=== PATIENT | female | born 1950 | race Caucasian/White ===

== ENCOUNTER 2024-03-27 09:30 | Outpatient (RCR) | payer MEDICARE, BC, SELFPAY | END 2024-03-30 10:46 | disposition home or self-care (01) | PROVIDERS: PCP Family Medicine; Visit Provider Family Medicine | DX: M54.2 Cervicalgia (principal); G44.86 Cervicogenic headache; Z51.89 Encounter for other specified aftercare | CPT/HCPCS: 97110; 97140; 97161; 97530 ==

== ENCOUNTER 2024-10-08 13:06 | Emergency (ER) | payer MEDICARE, BC, SELFPAY ==
[2024-10-08] VITALS (9 sets, daily range): BP systolic 136–168; BP diastolic 66–73; PULSE 71–80; RESP 20; TEMP 36.6; O2SAT 94–98; BMI 29.2
--- OUTSIDE RECORDS SUMMARY | 2024-10-08 13:19 | XMS_ITS | Clinical Summary ---
Author Organization [facility] Address [address] [place] [id number] Care Team Providers Care Proposal Analyst Name Role Phone Hanny Verma MD Primary Care Provider Allergies Active Allergy Reactions Criticality Noted Date Comments Penicillins Rash 02/06/2011 Medications vitamin a-vitamin c-vitamin e-minerals (OCUVITE) 1,000-60-2 wwya-tuxh-di tablet Take 1 tablet by mouth once daily. 0 02/06/2011 Active cholecalciferol (VITAMIN D) 1,000 unit capsule Take 1 capsule by mouth once daily. 0 02/06/2011 Active fish oil-fat acid comb.8-Hb137 (OMEGA 3-6-9) 1,200 mg Cap capsule Take 1 capsule by mouth once daily. 0 02/06/2011 Active aspirin (ECOTRIN) 81 mg enteric coated tabletIndication s:HTN (hypertension) Take 1 tablet by mouth once daily with a meal. 90 tablet 3 08/17/2015 Active Lactobacillus acidophilus (PROBIOTIC) 10 billion cell cap Take by mouth. 0 10/16/2017 Active losartan-hydroch lorothiazide (HYZAAR) 100-12.5 mg tabletIndication s:Hypertension, unspecified type Take 1 Tablet by mouth once daily. 90 Tablet 3 12/31/2023 Active Active Problems Problem Noted Date Diagnosed Date [place] or callus 12/31/2023 Bilateral leg edema 12/31/2023 Hemorrhoids, internal 12/26/2022 Hypertensive disease 12/26/2022 Depression, recurrent 12/26/2022 ACP (advance care planning) 11/27/2017 Overview (11/27/2017): HCD received, see HCD 11/25/17 TERRENCE MahoneyW Advance Care Planning Educator [phone] Osteopenia 08/14/2013 Overview (08/14/2013): -1.6. Repeat 3-5 years. Monet Malagon M.D. 08/14/2013 4:17 PM Mixed hyperlipidemia 02/13/2012 Assessment & Plan (12/06/2016 9:25 AM CDT): ASCVD risk calculator 11.5% Has elected to not take statin after risk/benefit discussion Hyperplastic colon polyp 03/28/2011 Overview (03/28/2011): Colonoscopy 03/2011 polyps repeat in 10 years HTN (hypertension) 02/06/2011 Immunizations Immunization Administration Dates Next Due COVID-19 VACCINE SPIKEVAX (M ODERNA 50MCG/0.5ML) 12YO+ PFS 12/31/2023,12/26/2022 COVID-19 vaccine (Pfizer-Bio NTech 30mcg/0.3mL) PF, MDV 01/23/2021 Influenza RIV4 (Age 18+ Years) PRESERV FREE 07/2019,12/23/2018 Influenza, High-dose Inactivated 01/08/2018,11/16,11/29/2014 Influenza, IIV3 (Age >=3 years) 12/18/2013,02/12,02/06/2011 Influenza, Inactivated AIIV4 (Age 65+ Years) Preserv Free 12/26/2022,12/14/2021,12/06/2020 Influenza, Inactivated IIV3 (Age 65+ Years) Preserv Free 12/31/2023,01/14/2017 Pneumococcal Poly,23-Valent (Pneumovax) 11/30/19 15 Pneumococcal conj 13-Valent (Prevnar 13) 014 Td (Age >=7 Years) 10/13/1996 Tdap 06/07/2023,02/06/2011 Zoster (Shingrix-RZV, recombinant) 07/08/2018, Zoster (Zostavax-ZVL, live) 02/06/2011 Family History Medical History Relation Name Comments Heart Disease Father Hypertension Mother Cancer-breast No Family History Cancer-colon No Family History Relation Name Status Comments Father (Age 56) first mi a ge 30 Mother Social History Tobacco Use Types Packs/Day Years Used Date Smoking Tobacco: Never Smokeless Tobacco: Never Tobacco Cessation:Counseling Given: Yes Alcohol Use Standard Drinks/Week Comments No 0 (1 standard drink = 0.6 oz pur e alcohol) PHQ-2 Answer Date Recorded PHQ-2 TOTAL SCORE 5 12/31/2023 Social Connections Answer Date Recorded Do you often feel lonely or isolated from those around you? 0 12/30/2023 Financial Resource Strain Answer Date R ecorded Difficulty of Paying Living Expenses 3 12/30/2023 Difficulty of Paying Living Expenses Not on file 12/30/2023 Food Insecurity Answer Date Recorded Do you worry your food will run out before you are able to buy more? 1 12/30/2023 Transportation Needs Answer Date Record ed Does lack of transportation keep you from medica l appointments? 1 12/30/2023 Does lack of transportation keep you from work, meetings or getting things that you need? 1 12/30/2023 Housing Stability Answer Date Recorded What is your housing situation today? 1 12/30/2023 Utilities Answer Date Recorded Do you have trouble paying f or utilities (for example, heat, electricity, water, phone)? 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 Not on file No t on file Not on file Obstetrics History Para Term AB IAB SAB Ectopic Multiple Livin g Live Births 1 1 1 Date Outcome GA Total Labor Labor/2nd/3rd Weight Sex Type Anes PTL Jennifer A1 A5 Name Clin Para Last Filed Vital Signs Vital Sign Reading Time Taken Comments Blood Pressure 138/82 12/31/2023 9:46 AM CDT Pulse 63 12/31/2023 9:12 AM CDT Temperature 37.1 C (98.7 F) 12/14/2021 8:33 AM CDT Respiratory Rate - - Oxygen Saturation 100% 12/31/2023 9:12 AM CDT Inhaled Oxygen Concentration - - Weight 73.3 kg (161 lb 9.6 oz) 12/31/2023 9:12 A M CDT Height 161 cm (5' 3.39) 12/31/2023 9:12 AM CDT Body Mass Index 28.28 12/31/2023 9:12 AM CDT Plan of Treatment Upcoming Encounters Date Type Department Care Team (Late st Contact Info) Description 11/04/2024 2:00 PM CDT Office Visit [facility] [address] [place] [address] Hanny Verma MD [address] [place] [address] Health Maintenance Due Date Last Done Comments RSV vaccine for adults or (1 - 1-dose 75+ series) 08/21/2023 COVID-19 vaccine series ( season) 2024 12/31/2023, 12/26/2022, 07/18/2022, Additional history exists Influenza Vaccine (#1) 2024 , 12/26/2022, 12/14/2021, Additional history exists BMI (ht and wt on same day) for age 18+ 12/30/2024 12/31/2023, 12/26/2022, 12/14/2021, Additional history exists Medicare Wellness for age 65+ 12/31/2024 12/31/2023, 12/26/2022, 12/06/2020, Additional history exists Depression screening for age 12+ 01/01/2025 01/02/2024, 12/31/2023, 12/31/2023, Additional history exists Tetanus booster 06/06/2033 06/07/2023, 01/17, 10/13/1996 Hepatitis C screening for age 18-79 Completed 08/07/2013 Pneumococcal series for age 50+ Completed 12/16/2014 (Completed outside of [facility]), 11/29/2014, 12/24/2013 DEXA/DXA scan for age 65+ Completed 10/17/2017, Zoster (shingles) series for age 50+ Completed 07/08/2018, 04/05/2018, 02/06/2011 Hepatitis B series for 19+ Aged Out N o longer eligible based on patient's age to complete this topic Procedures Procedure Name Priority Date/Time Associated Diagnosis Comments XR DXA BONE DENSITY 2 SITES AXIAL Routine 10/17/2017 10:36 AM CDT Menopause ANTI HCV Routine 08/07/2013 12:12 PM CDT Need for hepatitis C screening test from Last 3 Months or Most Recently Relevant to Health Maintenance Results * (ABNORMAL) XR DXA BONE DENSITY 2 SITES AXIAL (10/17/2017 10:36 AM CDT) Anatomical Region Laterality Modality Spine, HIPS, HIPL, HIPR Other Narrative 10/21/2017 1:49 PM CDT Please see scanned document for results of this study. us Hanny Verma MD DEXA Final Resul t * ANTI HCV [81552.2] (08/07/2013 12:12 PM CDT) HEPATITIS C ANTIBODY Non-Reacti ve Non-Reacti ve 08/07/2013 5:14 PM CDT [facility] Blood specimen (specimen) BLOOD SPECIMEN / Unknown Venipuncture / Unknown 08/07/2013 12:12 PM CDT 08/07/2013 12:13 PM CDT Narrative [facility] - 08/07/2013 5:14 PM CDT Antibodies to HCV not detected; does not exclude the possibility of exposure to HCV. us Monet Malagon SEND OUTS Final R esult [facility] [address] [place] [address], [place] from Last 3 Months or Most Recently Relevant to Health Maintenance Insurance [employer] [place] [employer] [place] ONLY Advance Directives Documents on File Type Date Recorded Patient Double Bottom Driver Expl anation Healthcare Directive 11/28/2017 2:10 PM 12/2017 Care Teams Proposal Analyst Relationship Specialty Start Date End Date Hanny Verma MD [address] [place] [address] PCP - General Family Practice 12/25/16
--- NOTE | 2024-10-08 13:29 | CRLHL7_ITS ---
For Patients: As a result of the Century Cures Act, medical imaging exams and procedure reports are released immediately into your electronic medical record. You may view this report before your referring provider. If you have questions, please contact your health care provider. INDICATION: Injury. Posterior right rib pain. COMPARISON: None TECHNIQUE: : CT examination of the chest was performed without contrast.Thin axial sections were obtained from the thoracic inlet through the lung bases. Please note that all CT scans at this facility use dose modulation, iterative reconstruction, and/or weight-based dosing when appropriate to reduce radiation dose to as low as reasonably achievable. FINDINGS: : HEART and MEDIASTINUM: Heart size top. Atherosclerotic vascular calcification fusiform aneurysmal dilation of the ascending aorta at 4.1 centimeters. A superior mediastinal nodules/masses noted measuring 1.8 centimeters. This could be a solitary lymph node, if thymic lesion such as a thymoma or other mass. LUNGS and PLEURAL SPACES: The lungs show basilar opacities probably due to atelectasis and scarring. A cluster of tree-in-bud nodules is noted in the superior segment of the left lower lobe. Insert usually inflammatory. There also a few scattered nodules in the 3-4 millimeter range. These generally do not require follow-up. However, consider 12 month follow-up noncontrast chest CT especially in a high risk individual.No pleural effusion or pneumothorax. VISUALIZED UPPER ABDOMEN: The limited visualized upper abdominal structures appear normal. OSSEOUS STRUCTURES: Age-appropriate appearance. No acute fracture or destructive process.This includes the thoracic spine, the upper lumbar spine and the ribcage. TUBES and LINES: None. IMPRESSION: 1. There is no acute posttraumatic finding on this study involving the lungs, pleural spaces, chest wall or regional osseous structures 2. Superior mediastinal nodule measuring 1.8 centimeters. This could be a solitary enlarged lymph node, thymic lesion such as a thymoma or other mass. Recommend that the patient be referred for further evaluation of this in the nonacute care setting. This could be short-term follow up CT or a PET-CT depending upon the clinical scenario. 3. Mild fusiform aneurysmal dilation of the ascending aorta. 4. A few small probably benign lung nodules are noted. Consider a 12 month follow-up chest CT as above. There are tree-in-bud nodules also noted which are considered inflammatory. Scattered linear opacities at the bases likely atelectatic or inflammatory. None of the lung findings are felt to be posttraumatic. Please note that all CT scans at this facility use dose modulation, iterative reconstruction, and/or weight-based dosing when appropriate to reduce radiation dose to as low as reasonably achievable. Dictated by Gabriel Mars MD @ 10/08/2024 1:59:40 PM (Electronically Signed)
--- NOTE | 2024-10-08 13:31 | ED.GENADULT ---
HPI - General Adult General Date Seen: 10/08/24 Chief complaint: Fall/Minor Trauma Stated complaint: fell, hit ribs Time Seen by Provider: 10/08/24 13:10 History of Present Illness HPI narrative: Patient is a 74-year-old here for evaluation of right ribcage pain. She had a stumble into her counter top almost a week ago now where she landed on her right side, she has bruising and the right upper posterior rib area and also her right arm. She said she has not been doing much since then because she has pain in her right ribcage. The pain actually seems more lateral than the bruising. She has not had shortness of breath. The arm is bruised but she otherwise does not have any pain in it. Because it has continued to hurt she decided to come and get it checked out today. She has not had fevers or cough. She did not have a full fall, denies hitting her head, no back or neck injury. No other recent illness or complaints. She lives at home with her . [facility] [place] [address] [facility] and she feels she has generally been getting around just fine. She does not smoke. Related Data Home Medications ?Medication ?Instructions ?Recorded ?Confirmed losartan 100 1 tab PO DAILY 10/08/24 10/08/24 mg-hydrochlorothiazide 12.5 mg tablet Allergies Allergy/AdvReac Type Severity Reaction Status Date / Time Penicillins Allergy Intermediate Rash Verified 10/08/24 13:21 Review of Systems Status of ROS: Reports: 6 or more systems reviewed and unremarkable except as noted in History and below Exam Narrative: Exam Narrative: Vital signs reviewed In general, alert, nontoxic elderly woman. Breathing easily. Head: Normocephalic, atraumatic. Eyes: Sclera clear. Pupils equal and reactive. ENT: Mucous membranes moist. Neck: Supple without adenopathy. Nontender to palpation. Heart: Regular rate and rhythm without murmur. Lungs: Clear. No increased work of breathing, crackles or wheezes. Breath sounds are equal. She has a small bruised area on the right side of her back, some tenderness in this area. No crepitus or subcu air. No other visible chest trauma. Abdomen: Soft, nontender to palpation, including no right upper quadrant tenderness.. Extremities: Well perfused, pulses intact. No significant edema. She has large bruise on the upper arm on the right, no bony tenderness or deformity, full range of motion the elbow. She does have pain in the chest wall when she moves her arm. Neurologic: Alert, conversant. Speech fluent, face symmetric. Moves all extremities equally. Skin: Warm, dry well perfused. Affect: Normal. Const: Vital Signs, click to edit/add: Vital Signs - 24 hr 10/08/24 13:15 Temperature 97.8 F Pulse Rate [Pulse Oximeter] 78 Respiratory Rate 20 Blood Pressure [Ri ght Upper Arm] 168/73 H Pulse Oximetry 98 Oxygen Delivery Me thod Room Air Course Course ED Course: Given her age I think CT is about her test to evaluate for rib fracture or intrathoracic injury. Original injury was almost a week ago, I think a noncontrast CT is adequate for these purposes. Declines need for anything for pain. My review of her CT scan shows 2 rib fractures on the right, no pneumothorax. Radiology report reviewed, they note an incidental mediastinal nodule which is 1.8 cm and recommend follow-up for that. She also has a mild aneurysmal dilation of the ascending aorta at 4.1 cm. I have relayed these things to her, I gave her a copy of her CT report and I have asked her to talk with primary care about follow-up on these findings. With regard to rib fractures, we discussed the expected course. She does not want anything stronger than Tylenol to take at home. We talked about use of ice. Discussed reasons to return such as shortness of breath, severe uncontrolled pain, fevers. Vital Signs Vital signs: Initial Vital Signs Temperature 97.8 F 10/08/24 13:15 Temperature Source Temporal Artery Scan 10/08/24 13:15 Pulse Rate 78 10/08/24 13:15 Respiratory Rate 20 10/08/24 13:15 Blood Pressure 168/73 H 10/08/24 13:15 Blood Pressure Mean 104 10/08/24 13:15 Pulse Oximetry 98 10/08/24 13:15 Oxygen Delivery Method Room Air 10/08/24 13:15 Vital Signs Temperature 97.8 F 10/08/24 13:15 Pulse Rate 78 10/08/24 13:15 Respiratory Rate 20 10/08/24 13:15 Blood Pressure 168/73 H 10/08/24 13:15 Pulse Oximetry 98 10/08/24 13:15 Oxygen Delivery Method Room Air 10/08/24 13:15 Temperature 97.8 F 10/08/24 13:15 Pulse Rate 78 10/08/24 13:15 Respiratory Rate 20 10/08/24 13:15 Blood Pressure 168/73 H 10/08/24 13:15 Pulse Oximetry 98 10/08/24 13:15 Oxygen Delivery Method Room Air 10/08/24 13:15 Medical Decision Making Imaging Data CT scan - chest: Attestation: I have reviewed the pertinent imaging results. Radiologist's impression: Patient: Loraine Peña MR#: [id number] : 1950 Acct:[id number] Loc: ED Service Date: 10/08/[address]: Ordering Physician: Camryn Winter M.D. Date of Service: 10/08/24 Procedure(s): CT chest wo con Accession Number(s): [id number] cc: Camryn Winter M.D.; Hanny Verma M.D.~ ADDENDUM INDICATION: Injury. Posterior right rib pain. COMPARISON: None TECHNIQUE: : CT examination of the chest was performed without contrast.Thin axial sections were obtained from the thoracic inlet through the lung bases. Please note that all CT scans at this facility use dose modulation, iterative reconstruction, and/or weight-based dosing when appropriate to reduce radiation dose to as low as reasonably achievable. FINDINGS: : HEART and MEDIASTINUM: Heart size top. Atherosclerotic vascular calcification fusiform aneurysmal dilation of the ascending aorta at 4.1 centimeters. A superior mediastinal nodules/masses noted measuring 1.8 centimeters. This could be a solitary lymph node, if thymic lesion such as a thymoma or other mass. LUNGS and PLEURAL SPACES: The lungs show basilar opacities probably due to atelectasis and scarring. A cluster of tree-in-bud nodules is noted in the superior segment of the left lower lobe. Insert usually inflammatory. There also a few scattered nodules in the 3-4 millimeter range. These generally do not require follow-up. However, consider 12 month follow-up noncontrast chest CT especially in a high risk individual.No pleural effusion or pneumothorax. VISUALIZED UPPER ABDOMEN: The limited visualized upper abdominal structures appear normal. OSSEOUS STRUCTURES: Age-appropriate appearance. No acute fracture or destructive process.This includes the thoracic spine, the upper lumbar spine and the ribcage. TUBES and LINES: None. IMPRESSION: 1. There is no acute posttraumatic finding on this study involving the lungs, pleural spaces, chest wall or regional osseous structures 2. Superior mediastinal nodule measuring 1.8 centimeters. This could be a solitary enlarged lymph node, thymic lesion such as a thymoma or other mass. Recommend that the patient be referred for further evaluation of this in the nonacute care setting. This could be short-term follow up CT or a PET-CT depending upon the clinical scenario. 3. Mild fusiform aneurysmal dilation of the ascending aorta. 4. A few small probably benign lung nodules are noted. Consider a 12 month follow-up chest CT as above. There are tree-in-bud nodules also noted which are considered inflammatory. Scattered linear opacities at the bases likely atelectatic or inflammatory. None of the lung findings are felt to be posttraumatic. Please note that all CT scans at this facility use dose modulation, iterative reconstruction, and/or weight-based dosing when appropriate to reduce radiation dose to as low as reasonably achievable. Dictated by Gabriel Mars MD @ 10/08/2024 1:59:40 PM ----- ADDENDUM ----- ON REVIEW OF THIS CASE AT THE REQUEST OF DR. WINTER, THERE ARE IN FACT 2 RIB FRACTURES. THE LATERAL ASPECT OF THE RIGHT 6TH AND 8TH RIBS ARE FRACTURED. NO SIGNIFICANT DISPLACEMENT. Dictated by Gabriel Mars MD @ Oct 08 2024 2:23PM Discharge Plan Discharge Clinical Impression: Right rib fracture, Mediastinal mass Patient Disposition: Home, Self-Care Condition: Stable Instructions: Rib Fracture (ED) Additional Instructions: As discussed, you can use Tylenol, ice can often be helpful as well. Rib fractures take 6-8 weeks to heal, but I expect you will start to feel better in the next couple of weeks. If you have severe uncontrolled pain, difficulty breathing, fevers, significant cough or other new problems, return to the ER at any time. As discussed, there is a small, incidentally seen mass on your chest CT which the radiologist recommends you have followed up. While this is likely nothing serious, it is important to complete the workup to ensure that it does not need further attention. Please discuss this with your primary doctor to arrange for this follow-up. The other finding noted on your chest CT is that you have a mildly dilated aorta, the big blood vessel in your chest. This is not serious now, but is something that will likely be tracked over time as well, discuss further with your primary doctor. Prescriptions: No Action losartan-hydrochlorothiazide 100-12.5 mg tablet 1 tab PO DAILY Follow Up/Referrals: Hanny Verma MD [Primary Care Provider, Family Practice] Stand Alone Forms: [facility] Info Instructions
== END 2024-10-08 14:41 | disposition home or self-care (01) ==
PROVIDERS: Emergency Provider Emergency Medicine; PCP Family Medicine
DX: S22.41XA Multiple fractures of ribs, right side, initial encounter for closed fracture (principal); W22.8XXA Striking against or struck by other objects, initial encounter
CPT/HCPCS: 71250; 99284

== ENCOUNTER 2024-10-29 14:13 | Outpatient (CLI) | payer MEDICARE, BC, SELFPAY ==
--- NOTE | 2024-10-29 14:30 | CRLHL7_ITS ---
For Patients: As a result of the Century Cures Act, medical imaging exams and procedure reports are released immediately into your electronic medical record. You may view this report before your referring provider. If you have questions, please contact your health care provider. EXAM: FDG PET-CT Skull Base to Thighs CLINICAL INFORMATION: 74-year-old woman with history of mediastinal nodule. History of fall and right-sided trauma in September 2024. PET CT ordered for additional characterization. TECHNIQUE: Radiopharmaceutical: 18F-fluorodeoxyglucose (18F-FDG) Dose: 14.42 milliCurie. Blood glucose: 84 mg/dL. Image acquisition: At approximately 60 minutes following IV tracer administration via a right antecubital vein, positron emission tomography was performed from the skull base through the mid thigh. Non-contrast low-dose helical CT imaging was performed over the same range without breath-hold for attenuation correction of PET images and anatomic correlation; it is neither sufficient, nor should it be substituted for diagnostic purposes. COMPARISON: CT Chest 10/08/2024 FINDINGS: Mediastinal blood pool FDG uptake: SUVMax 3.3 (301:107, 202:108) Liver background parenchymal FDG uptake: SUVMax 3.7 (301:138, 202:139) PET Findings: Similar size of a non FDG avid 1.7 x 1.4 cm prevascular mediastinal nodule, 43.7 Hounsfield units (301:1, 202:102), with FDG uptake partially obscured by FDG uptake from the aorta and pulmonary artery. Previously this measured 1.7 x 1.3 cm (2:43 , remeasured in the same plane). No abnormal FDG avid lymphadenopathy. Moderately FDG avid subacute fractures in right lateral ribs 6-9, likely reactive/inflammatory. No other abnormal FDG uptake in the visualized skeleton. Tracer uptake elsewhere is physiologic. Non-PET findings: Coronary artery calcifications. 4.1 x 4.0 cm ascending thoracic aortic aneurysm. Atherosclerotic calcifications of the thoracic and abdominal aorta. Subcentimeter pulmonary nodules, for example a 0.4 cm nodule in the right middle lobe (202:111), too small to characterize. Colonic diverticulosis. Multilevel degenerative changes in the spine. IMPRESSION: 1. Non FDG avid 1.7 x 1.4 cm prevascular mediastinal nodule with FDG uptake partially obscured by FDG uptake from the aorta and pulmonary artery. This is likely benign, with the differential including a proteinaceous/hemorrhagic thymic cyst. Recommend correlation with chest MRI for more complete characterization. 2. Moderately FDG avid subacute fractures in right lateral ribs 6-9, likely reactive/inflammatory. This is likely related to the recent fall with trauma to the right chest wall in September 2024. 3. No evidence of FDG avid malignancy. 4. 4.1 x 4.0 cm ascending thoracic aortic aneurysm. Dictated by Dale Willson MD @ 11/03/2024 6:20:26 PM (Electronically Signed)
== END 2024-10-29 14:14 | disposition home or self-care (01) ==
LOC: RAD 14:15
PROVIDERS: PCP Family Medicine; Visit Provider Family Medicine
DX: R91.8 Other nonspecific abnormal finding of lung field (principal); J98.59 Other diseases of mediastinum, not elsewhere classified; S22.41XA Multiple fractures of ribs, right side, initial encounter for closed fracture; I71.21 Aneurysm of the ascending aorta, without rupture
CPT/HCPCS: 78815; A9552